=== PATIENT | male | born 1985 | race Two or more races ===

== ENCOUNTER 2018-07-20 08:57 | Outpatient (CLI) | payer OTHER | END 2018-07-20 09:02 | disposition home or self-care (01) | LOC: RAD 08:57 | DX: M54.89 Other dorsalgia (principal) ==

== ENCOUNTER 2018-08-05 08:06 | Outpatient (CLI) | payer OTHER | END 2018-08-05 08:10 | disposition home or self-care (01) | LOC: RAD 08:06 | DX: M10.9 Gout, unspecified (principal) ==